=== PATIENT | male | born 1935 | race Caucasian/White ===

== ENCOUNTER 2017-04-28 09:07 | Emergency (ER) | payer MEDICARE, OTHER ==
[~2017-04-28] VITALS: Ht 182.9 cm; Wt 112.4 kg
== END 2017-04-28 13:29 | disposition short-term general hospital (02) ==
LOC: ER 09:07
DX: M54.5 Low back pain (principal); I10 Essential (primary) hypertension; E78.5 Hyperlipidemia, unspecified; Z79.899 Other long term (current) drug therapy
CPT/HCPCS: J1885; J8499